=== PATIENT | male | born 1955 | race Caucasian/White ===

== ENCOUNTER 2017-05-15 11:30 | Emergency (ER) | payer OTHER ==
[2017-05-15] MEDS ORDERED: CHLORDIAZEPOXIDE 25MG PREPK#6 BTL TAKEHOME ONE (12:31)
--- NOTE | 2017-05-15 12:31 | EDPHY ---
H & P Time Seen by Provider: 05/15/17 12:18 HPI/ROS: CHIEF COMPLAINT: Alcohol withdrawal HISTORY OF PRESENT ILLNESS: This 62-year-old male presenting to the emergency department wanting some assistance with alcohol treatment plan, concerned about going through alcohol withdrawals. Patient reports last alcohol drink was at 9 o'clock this morning, daily drinks beer whiskey vodka with every get his hands on. Denies any history of seizures from alcohol withdrawal, denies any drug use. Br etoh 0.18 REVIEW OF SYSTEMS: Constitutional: No fever, no chills. No changes in PO intake Eyes: No discharge. No blurred vision ENT: No sore throat. Cardiovascular: No chest pain, no palpitations. Respiratory: No cough, no shortness of breath. Gastrointestinal: No abdominal pain, no nausea/ vomiting. Genitourinary: No hematuria. Musculoskeletal: No back pain. Skin: No rashes. Neurological: No headache. Smoking Status: Never smoked Physical Exam: General Appearance: Alert, no distress. HEENT: Normocephalic atraumatic Pupils equal and round no pallor or injection. Mucous membranes moist. Respiratory: There are no retractions, lungs are clear to auscultation. Cardiovascular: Regular rate and rhythm. Gastrointestinal: Abdomen is soft and nontender, no masses, bowel sounds normal. Neurological: no focal deficits. patient answering questions appropriately no fasciculations non tremulous Skin: Warm and dry, no rashes. Musculoskeletal: Neck is supple nontender. Extremities: symmetrical, full range of motion. Psychiatric: Patient is oriented X 3, there is no agitation. patient acting appropriately Constitutional: Initial Vital Signs Temperature (C) 37.1 C 05/15/17 11:34 Heart Rate 96 05/15/17 11:34 Respiratory Rate 18 05/15/17 11:34 Blood Pressure 178/105 H 05/15/17 11:34 O2 Sat (%) 95 05/15/17 11:34 O2 Delivery Mode Room Air Allergies/Adverse Reactions: No Known Allergies Allergy (Unverified 05/15/17 11:32) Home Medications: Medication Instructions Recorded Lisinopril 05/15/17 Nexium 05/15/17 Medical Decision Making ED Course/Re-evaluation: discussed the plan of care: patient discussed wanting to go to the [facility] 1235: discharged to the [facility] with Librium stemajor---> stable, discussed all discharge instructions Differential Diagnosis: other differential diagnosis considered but not limited to alcohol withdrawal, seizure, AMS due to alcohol intoxication - Data Points Medications Given: Discontinued Medications Chlordiazepoxide (Librium 25 Mg Prepack#6) 1 btl TAKEHOME EDNOW ONE Stop: 05/15/17 12:32 Last Admin: 05/15/17 12:47 Dose: 1 btl Departure - Departure Disposition: Home, Routine, Self-Care Clinical Impression: Alcohol dependence Qualifiers: Substance use status: with intoxication Complication of substance-induced condition: uncomplicated Qualified Code(s): F10.220 - Alcohol dependence with intoxication, uncomplicated Condition: Good Instructions: Anxiety (ED), Alcohol Dependence (ED), Alcohol Use Disorder (ED) Additional Instructions: 1. the [facility] will have resources for alcohol treatment plan 2. Follow up with your primary care provider as needed 3. Stop drinking alcohol Referrals: [facility],. [Clinic] - As per Instructions
[2017-05-15 12:52] VITALS: BP 127/78; PULSE 90; RESP 16; TEMP 98.4; O2SAT 94
== END 2017-05-15 12:51 | disposition home or self-care (01) ==
DX: F10.220 Alcohol dependence with intoxication, uncomplicated (principal)

== ENCOUNTER 2017-05-16 06:48 | Emergency (ER) | payer OTHER ==
[2017-05-16] MEDS ORDERED: chlordiazePOXIDE 25 MG CAP PO ONE ×2 (06:52→06:57)
[2017-05-16] MEDS ORDERED: CHLORDIAZEPOXIDE 25MG PREPK#6 BTL TAKEHOME ONE ×2 (06:52→06:58)
--- NOTE | 2017-05-16 06:52 | EDPHY ---
H & P Time Seen by Provider: 05/16/17 06:51 HPI/ROS: HPI The patient presents with alcohol withdrawal from the [facility] , brought in by ambulance. He has been taking Librium, however ran out and had his last dose at 1:00 a.m. with continued withdrawal symptoms of tremulousness and anxious. He denies any seizures. REVIEW OF SYSTEMS Constitutional: No fever, no chills. Eyes: No discharge. ENT: No sore throat. Cardiovascular: No chest pain, no palpitations. Respiratory: No cough, no shortness of breath. Gastrointestinal: No abdominal pain, no vomiting. Genitourinary: No hematuria. Musculoskeletal: No back pain. Skin: No rashes. Neurological: No headache. PMHx: Hypertension Soc Hx: Alcohol abuse PHYSICAL General Appearance: Alert, no distress Eyes: Pupils equal and round no pallor or injection ENT, Mouth: Mucous membranes moist Respiratory: There are no retractions, lungs are clear to auscultation Cardiovascular: Regular rate and rhythm Gastrointestinal: Abdomen is soft and non-tender, no masses, bowel sounds normal Neurological: A&O, moves all extremities, very mild hand tremor Skin: Warm and dry, no rashes Musculoskeletal: Neck is supple non tender Extremities: symmetrical, full range of motion Psychiatric: Patient is oriented X 3, there is no agitation Source: Patient, EMS Exam Limitations: No limitations - Medical/Surgical History Hx Asthma: No Hx Chronic Respiratory Disease: No Hx Diabetes: No Hx Cardiac Disease: No Hx Renal Disease: No Hx Cirrhosis: No Hx Alcoholism: Yes Hx HIV/AIDS: No Hx Splenectomy or Spleen Trauma: No Other PMH: htn - Social History Smoking Status: Never smoked Constitutional: Initial Vital Signs Temperature (C) 36.6 C 05/16/17 06:51 Heart Rate 77 05/16/17 06:51 Respiratory Rate 16 05/16/17 06:51 Blood Pressure 153/87 H 05/16/17 06:51 O2 Sat (%) 96 05/16/17 06:51 O2 Delivery Mode Room Air Allergies/Adverse Reactions: No Known Allergies Allergy (Unverified 05/15/17 11:32) Home Medications: Medication Instructions Recorded Lisinopril 05/15/17 Nexium 05/15/17 Medical Decision Making Differential Diagnosis: This is a 62-year-old male who is brought in by paramedics for alcohol withdrawal from the [facility]. He was sent 30 yesterday from the ER and has used his Librium pills that he was sent with. His last dose was 1:00 a.m.. He is in mild alcohol withdrawal currently with elevated BP and mild tremor. He is not in DTs. He has not had a seizure. I plan to treat him here with a dose of Ativan IV as he has an IV line, I will give him a dose of Librium here and send him home with a pill pack. He is in agreement with this plan. Differential diagnosis includes alcohol withdrawal, anxiety attack, alcohol intoxication. Departure - Departure Disposition: Home, Routine, Self-Care Clinical Impression: Alcohol withdrawal Qualifiers: Complication of substance-induced condition: uncomplicated Qualified Code(s): F10.230 - Alcohol dependence with withdrawal, uncomplicated Condition: Good Instructions: Alcohol Withdrawal (ED) Additional Instructions: Please return to the emergency room if your worse in any way. Referrals: [facility] [Outside] - As per Instructions
[2017-05-16] MEDS ORDERED: LORazepam 2 MG/ML INJ IVP ONE (06:57)
[2017-05-16 08:32] VITALS: BP 154/76; PULSE 81; RESP 19; TEMP 98.1; O2SAT 95
== END 2017-05-16 08:31 | disposition home or self-care (01) ==
LOC: EDUNIT#
DX: F10.230 Alcohol dependence with withdrawal, uncomplicated (principal); I10 Essential (primary) hypertension
CPT/HCPCS: 96374; J2060